=== PATIENT | female | born 1950 | race Caucasian/White ===

== ENCOUNTER 2016-12-28 14:26 | Inpatient (IN) | payer MEDICARE, OTHER ==
[~2016-12-28] VITALS: Ht 165.1 cm; Wt 100.0 kg
[2016-12-28] MEDS ORDERED: ASPIRIN 325 MG TABLET PO ONE (15:00)
[2016-12-28 15:16] LABS: BLOOD UREA NITROGEN 25 mg/dL (7-18)
[2016-12-28 15:27] LABS: IS PT STATUS REG ER OR PRE ER? YES
[2016-12-28] MEDS ORDERED: SODIUM CHLORIDE 0.9%, 500ML IVBOLUS ONE (18:30)
[2016-12-28] MEDS ORDERED: DULO60CA7 PO (18:40)
[2016-12-28] MEDS ORDERED: OXYB5TAB7 PO (18:40)
[2016-12-28] MEDS ORDERED: LEVO150T5 PO (18:40)
[2016-12-28] MEDS ORDERED: LEVO175T5 PO (18:40)
[2016-12-28] MEDS ORDERED: ASPIRIN 325 MG TABLET EC ONE (18:45)
[2016-12-28] MEDS ORDERED: BISACODYL 10 MG SUPP PR PRN (20:30)
[2016-12-28] MEDS ORDERED: ONDANSETRON 2MG/ML, 2ML IVP PRN (20:30)
[2016-12-28] MEDS ORDERED: POLYETHYLENE GLYCOL 17 GM PACKET PO PRN (20:30)
[2016-12-28] MEDS ORDERED: ACETAMINOPHEN 325 MG TABLET PO PRN (20:30)
[2016-12-28 21:59] VITALS: BP 123/78
[2016-12-28] MEDS: SODIUM CHLORIDE 0.9% 1,000 ML IV SCH (23:06)
[2016-12-28] MEDS: DULOXETINE 30 MG CAPSULE.DR PO SCH (23:11)
[2016-12-29 01:50] VITALS: BP 118/71
[2016-12-29 05:44] LABS: ASPARTATE AMINO TRANSFERASE 21 U/L (15-37); BLOOD UREA NITROGEN 23 mg/dL (7-18)
[2016-12-29 05:47] LABS: IS PT STATUS REG ER OR PRE ER? NO
[2016-12-29] MEDS: LEVOTHYROXINE 175 MCG TABLET PO SCH (06:27)
[2016-12-29 07:39] VITALS: BP 104/57
[2016-12-29] MEDS: OXYBUTYNIN CHLORIDE 5 MG TABLET PO SCH (08:02)
[2016-12-29] MEDS: DULOXETINE 30 MG CAPSULE.DR PO SCH ×2 (08:03→21:21)
[2016-12-29] MEDS: SODIUM CHLORIDE 0.9% 1,000 ML IV SCH (08:03)
[2016-12-29] MEDS: SENNA/DOCUSATE TABLET PO SCH (08:03)
[2016-12-29] MEDS ORDERED: LEVOTHYROXINE 150 MCG TABLET PO SCH (09:00)
[2016-12-29 13:18] VITALS: BP 106/66
[2016-12-29 19:44] VITALS: BP 123/70
[2016-12-30 04:32] VITALS: BP 116/66
[2016-12-30 06:07] LABS: BLOOD UREA NITROGEN 25 mg/dL (7-18)
[2016-12-30] MEDS: LEVOTHYROXINE 175 MCG TABLET PO SCH (06:18)
[2016-12-30 07:55] VITALS: BP 99/47
[2016-12-30] MEDS: OXYBUTYNIN CHLORIDE 5 MG TABLET PO SCH (08:55)
[2016-12-30] MEDS: SENNA/DOCUSATE TABLET PO SCH (08:55)
[2016-12-30] MEDS: DULOXETINE 30 MG CAPSULE.DR PO SCH (08:57)
[2016-12-30] MEDS ORDERED: CLINDAMYCIN 300 MG CAPSULE PO SCH (09:30)
[2016-12-30] MEDS ORDERED: POTASSIUM CHLORIDE 20 MEQ TAB.ER.PRT PO ONE (09:30)
[2016-12-30] MEDS ORDERED: LACTOBACILLUS CHEW TABLET PO SCH (11:00)
[2016-12-30 14:52] VITALS: BP 111/66
== END 2016-12-30 16:55 | disposition home or self-care (01) | DRG 545 ==
LOC: ED 18:53 → EDIP 20:03 → 4WST 21:04 → DCLOUNGE 12-30 15:56
PROVIDERS: ADMIT Internal Medicine; ATTEND Internal Medicine
DX: M31.6 Other giant cell arteritis (principal); N17.0 Acute kidney failure with tubular necrosis; E87.1 Hypo-osmolality and hyponatremia; E89.0 Postprocedural hypothyroidism; R32 Unspecified urinary incontinence; G43.909 Migraine, unspecified, not intractable, without status migrainosus; H53.2 Diplopia; H70.92 Unspecified mastoiditis, left ear; M54.81 Occipital neuralgia; E87.6 Hypokalemia; E11.22 Type 2 diabetes mellitus with diabetic chronic kidney disease; N18.3 Chronic kidney disease, stage 3 (moderate); E11.42 Type 2 diabetes mellitus with diabetic polyneuropathy; Z96.643 Presence of artificial hip joint, bilateral; M79.7 Fibromyalgia; Z82.3 Family history of stroke; Z82.49 Family history of ischemic heart disease and other diseases of the circulatory system; Z83.3 Family history of diabetes mellitus; Z88.6 Allergy status to analgesic agent; Z88.1 Allergy status to other antibiotic agents; Z88.5 Allergy status to narcotic agent; Z88.8 Allergy status to other drugs, medicaments and biological substances; Z90.710 Acquired absence of both cervix and uterus; Z90.89 Acquired absence of other organs; Z98.1 Arthrodesis status
CPT/HCPCS: 36415; 70450; 70551; 71010; 80048; 80053; 80061; 82040; 83735; 84439; 84443; 84484; 85025; 85651; 86141; 93005; 93306; 93880; 99285; J7030; J7040; J7512

== ENCOUNTER → 2019-08-02 | Outpatient (CLI) | payer MEDICARE, OTHER ==
[~2019-08-02] MED LIST: DULO60CA7 PO; LEVO150T5 PO; LEVO175T5 PO; OXYB5TAB10 PO
== END | disposition home or self-care (01) ==
LOC: CFH 11:19
DX: Z13.820 Encounter for screening for osteoporosis (principal); N95.9 Unspecified menopausal and perimenopausal disorder
CPT/HCPCS: 77080

== ENCOUNTER → 2019-08-29 | Outpatient (CLI) | payer MEDICARE, OTHER | END | disposition home or self-care (01) | LOC: CFH 13:41 | PROVIDERS: ATTEND Orthopaedic Surgery | DX: M47.812 Spondylosis without myelopathy or radiculopathy, cervical region (principal); M89.38 Hypertrophy of bone, other site; M48.02 Spinal stenosis, cervical region; Z98.1 Arthrodesis status | CPT/HCPCS: 72141 ==

== ENCOUNTER 2019-10-06 14:15 | Outpatient (CLI) | payer MEDICARE, OTHER | END 2019-10-06 23:59 | disposition home or self-care (01) | LOC: CFH 14:15 | PROVIDERS: ATTEND Orthopaedic Surgery | DX: M48.02 Spinal stenosis, cervical region (principal); Z98.1 Arthrodesis status | CPT/HCPCS: 72052 ==

== ENCOUNTER → 2020-07-10 | Outpatient (CLI) | payer MEDICARE, OTHER | END | disposition home or self-care (01) | LOC: CFH 15:24 | PROVIDERS: ATTEND Physical Medicine & Rehabilitation | DX: M75.101 Unspecified rotator cuff tear or rupture of right shoulder, not specified as traumatic (principal); M19.011 Primary osteoarthritis, right shoulder; M75.21 Bicipital tendinitis, right shoulder; M25.411 Effusion, right shoulder; M75.51 Bursitis of right shoulder ==

== ENCOUNTER 2020-07-24 16:13 | Emergency (ER) | payer MEDICARE, OTHER ==
[~2020-07-24] VITALS: Ht 160 cm; Wt 85.0 kg
[2020-07-24 16:38] VITALS: BP 132/80
[2020-07-24 18:29] LABS: BASOPHILS % (AUTO) 1 % (0-1); EOSINOPHILS % (AUTO) 3 % (1-7); LYMPHOCYTES % (AUTO) 33 % (22-44); MEAN CORPUSCULAR HEMOGLOBIN 31.1 pg (27.0-34.8); MEAN CORPUSCULAR HGB CONC 32.6 g/dL (32.4-35.8); MEAN PLATELET VOLUME 8.5 fL (7.4-10.4); MONOCYTES % (AUTO) 8 % (2-9); NEUTROPHILS % (AUTO) 56 % (42-75); PLATELET COUNT 345 x10^3/uL (130-400); RED BLOOD COUNT 4.04 x10^6/uL (3.82-5.3)
[2020-07-24 18:36] LABS: ALBUMIN 3.4 g/dL (3.4-5.0); ANION GAP 6 mmol/L (5-15); CALCIUM 9.2 mg/dL (8.5-10.1); CHLORIDE 99 mmol/L (98-107)
[2020-07-24 18:38] LABS: MD NO
[2020-07-24 18:39] LABS: ALANINE AMINOTRANSFERASE 22 U/L (12-78); ALKALINE PHOSPHATASE 65 U/L (45-117); BILIRUBIN,TOTAL 0.3 mg/dL (0.2-1.0); CREATININE 0.81 mg/dL (0.55-1.02); TOTAL PROTEIN 6.8 g/dL (6.4-8.2)
[2020-07-24] MEDS ORDERED: GOLYTELY 4,000ML ORAL.SOL PO ONE (19:00)
== END 2020-07-24 19:51 | disposition home or self-care (01) ==
LOC: ED 16:30
DX: K59.00 Constipation, unspecified (principal); R10.84 Generalized abdominal pain
CPT/HCPCS: 36415; 74021; 80053; 85025; 99284